=== PATIENT | male | born 1980 | race Caucasian/White ===

== ENCOUNTER → 2016-12-30 | Outpatient (CLI) | payer OTHER ==
--- NOTE | 2016-12-30 13:50 | REP ---
LUMBOSACRAL SPINE: Five views lumbosacral spine are performed. There is mild loss of height anteriorly of the L1 vertebral body which appears to have been present on the prior chest radiograph 10/09/2006. I see no acute fracture or dislocation. There is mild to moderate anterior spurring of the T11 through L1 vertebral bodies. There is mild disc space narrowing at L4-5 with mild subchondral sclerosis. There is sclerosis at the facet joints of L4-5 and L5-S1. The posterior elements are intact. IMPRESSION: Old mild compression deformity L1 vertebral body. Mild degenerative changes. Signed by Cristobal Fulton MD 12/30/2016 04:59 P
== END ==
LOC: M WUC 13:11
PROVIDERS: ATTEND Physician Assistant
DX: M53.86 Other specified dorsopathies, lumbar region (principal)

== ENCOUNTER → 2019-05-04 | Outpatient (CLI) | payer OTHER ==
--- NOTE | 2019-05-04 10:00 | REP ---
Clinical: Left foot pain Technique: AP, lateral, bilateral oblique views left foot . Findings: The osseous structures and joint spaces are intact and normal. There is no evidence for acute fracture or dislocation. Surrounding soft tissues are unremarkable. No subcutaneous emphysema or radiodense foreign body. Impression: Normal left foot series . No acute fracture or dislocation. Electronically Signed by Adam Laird MD 05/04/2019 09:52 A
--- NOTE | 2019-05-04 10:01 | REP ---
Clinical: Pain. Technique: Axial and lateral views of the calcaneus. Findings: Calcaneus is normal in contour and appearance. No acute fracture or obvious abnormality. No heel spur. Joint spaces are intact and normal. Surrounding soft tissues are normal. Impression: Normal calcaneus radiographs. Electronically Signed by Adam Laird MD 05/04/2019 09:52 A
== END ==
LOC: M WUC 09:26
PROVIDERS: ATTEND Physician Assistant
DX: M79.672 Pain in left foot (principal)